=== PATIENT | male | born 1930 | race African-American/Black ===

== ENCOUNTER 2016-09-27 16:57 | Inpatient (IN) | payer MEDICARE ==
[~2016-09-27] VITALS: Ht 172.7 cm; Wt 74.8 kg
[~2016-09-27 16:57] MED LIST: AMLO10TA4 PO; DIGO250T4 PO; WARF4TAB36 PO
[2016-09-27 17:58] LABS: CHLORIDE 103 mEq/L (98-107)
[2016-09-27 18:00] LABS: INDEX HEMOLYSI 1 (1-3); INDEX ICTERIC 1 (1-4); INDEX LIPEMIC 1 (1-3)
[2016-09-27 18:01] LABS: BASOPHILS % 0.9 % (0.0-2.0); EOSINOPHILS % 1.6 % (0.0-5.0); HEMATOCRIT. 43.2 % (42.0-52.0); HEMOGLOBIN. 14.6 g/dL (14.0-18.0); LYMPHOCYTES % 17.9 % (20.0-50.0); MEAN CORPUSCULAR HEMOGLOBIN 31.5 pg (28.0-32.0); MEAN CORPUSCULAR HGB CONC 33.9 g/dL (31.0-37.0); MEAN PLATELET VOLUME 9.5 fl (7.4-10.4); MONOCYTES % 6.2 % (2.0-8.0); NEUTROPHILS % 73.4 % (40.0-76.0); PLATELET 255 x1000/uL (130-400); RED BLOOD CELL COUNT 4.65 mill/uL (4.7-6.1); RED CELL DISTRIBUTION WIDTH 13.6 % (11.6-14.6)
[2016-09-27 18:02] LABS: ALBUMIN 3.8 g/dL (3.4-5.0); CALCIUM 8.7 mg/dL (8.5-10.1)
[2016-09-27 18:06] LABS: ALANINE AMINOTRANSFERASE 23 IU/L (13-61); ANION GAP 14; CARBON DIOXIDE 28 mEq/L (21-32); MAGNESIUM 1.9 mg/dL (1.8-2.4); PHOSPHORUS 3.2 mg/dL (2.5-4.9); UREA NITROGEN BLOOD 23 mg/dL (7-21); eGFR > 60 mL/min (>60)
[2016-09-27 18:07] LABS: INR 1.1; PARTIAL THROMBOPLASTIN TIME 25.5 sec (24.0-34.0); PROTHROMBIN TIME 11.4 sec
[2016-09-27 18:10] LABS: NT PRO B-TYPE NATRIURETIC PEP 2343 pg/mL (5-125); TROPONIN I 0.35 ng/mL (0.00-0.04)
[2016-09-27] MEDS ORDERED: ASPIRIN 325MG EC TABLET PO ONE (19:15)
[2016-09-27 22:29] VITALS: BP 127/83
[2016-09-27 22:42] VITALS: BP 127/83
[2016-09-27] MEDS ORDERED: MEMA10TA11 PO (22:49)
[2016-09-27] MEDS ORDERED: CLONIDINE 0.1MG TABLET PO PRN (23:00)
[2016-09-27] MEDS ORDERED: MORPHINE SULFATE 4 MG/ML CPJ (NOT FOR IM USE) IV PRN (23:00)
[2016-09-27] MEDS ORDERED: ONDANSETRON HCL 4MG/2ML VIAL IV PRN (23:00)
[2016-09-28] VITALS: BP 123/85
[2016-09-28 04:00] VITALS: BP 128/79
[2016-09-28 06:19] LABS: BASOPHILS % 0.7 % (0.0-2.0); EOSINOPHILS % 1.2 % (0.0-5.0); HEMATOCRIT. 39.5 % (42.0-52.0); HEMOGLOBIN. 13.3 g/dL (14.0-18.0); LYMPHOCYTES % 25.7 % (20.0-50.0); MEAN CORPUSCULAR HEMOGLOBIN 31.5 pg (28.0-32.0); MEAN CORPUSCULAR HGB CONC 33.7 g/dL (31.0-37.0); MEAN CORPUSCULAR VOLUME 93.4 fL (80.0-94.0); MEAN PLATELET VOLUME 9.7 fl (7.4-10.4); NEUTROPHILS % 66.4 % (40.0-76.0); PLATELET 233 x1000/uL (130-400); RED BLOOD CELL COUNT 4.23 mill/uL (4.7-6.1); RED CELL DISTRIBUTION WIDTH 13.7 % (11.6-14.6); WHITE BLOOD COUNT 8.8 x1000/uL (4.5-11.0)
[2016-09-28 08:00] VITALS: BP 140/87
[2016-09-28 08:28] LABS: ANION GAP 14; CALCIUM 8.5 mg/dL (8.5-10.1); CARBON DIOXIDE 26 mEq/L (21-32); CHLORIDE 105 mEq/L (98-107); INDEX HEMOLYSI 1 (1-3); INDEX ICTERIC 1 (1-4); INDEX LIPEMIC 1 (1-3); LDL CHOLESTEROL 109 mg/dL (5-100); TRIGLYCERIDE 84 mg/dL (0-150); UREA NITROGEN BLOOD 20 mg/dL (7-21); eGFR > 60 mL/min (>60)
[2016-09-28 08:31] LABS: CREATINE KINASE 114 IU/L (39-308); CREATINE KINASE MB FRACTION 1.6 ng/mL (0.5-3.6); HDL CHOLESTEROL 73 mg/dL (40-59)
[2016-09-28] MEDS: ASPIRIN 81MG TABLET PO SCH ×2 (08:32→17:22)
[2016-09-28] MEDS: ENOXAPARIN 40MG/0.4ML SYR SUBCUT SCH (08:32)
[2016-09-28 12:00] VITALS: BP 114/77
[2016-09-28 16:00] VITALS: BP 112/69
[2016-09-28] MEDS: DIGOXIN 125MCG TABLET PO SCH (17:19)
[2016-09-28] MEDS ORDERED: WARFARIN SODIUM 7.5MG TABLET PO SCH (18:00)
[2016-09-28 20:00] VITALS: BP 132/87
[2016-09-28 20:30] LABS: T4 FREE 1.13 ng/dL (0.76-1.46); THYROID STIMULATING HORMONE 1.6 uIU/mL (0.36-3.74)
[2016-09-28] MEDS: ATORVASTATIN CALCIUM 10MG TABLET PO SCH (21:07)
[2016-09-29] VITALS: BP 137/97
[2016-09-29 00:05] LABS: CREATINE KINASE MB FRACTION 1.9 ng/mL (0.5-3.6); TROPONIN I 0.3 ng/mL (0.00-0.04)
[2016-09-29 04:00] VITALS: BP 147/72
[2016-09-29 06:23] LABS: INR 1.1
[2016-09-29 07:41] LABS: CREATINE KINASE MB FRACTION 1.1 ng/mL (0.5-3.6); TROPONIN I 0.28 ng/mL (0.00-0.04)
[2016-09-29 08:15] VITALS: BP 146/83
[2016-09-29] MEDS: ENOXAPARIN 40MG/0.4ML SYR SUBCUT SCH (08:50)
[2016-09-29] MEDS: ASPIRIN 81MG TABLET PO SCH ×2 (08:50→08:51)
[2016-09-29 11:21] LABS: AMMONIA 15 uMol/L (<32)
[2016-09-29 11:38] LABS: CLARITY URINE CLEAR (CLEAR); COLOR URINE YELLOW (YELLOW); GLUCOSE URINE NEGATIVE (NEGATIVE); KETONES URINE NEGATIVE (NEGATIVE); LEUKOCYTE ESTERASE URINE NEGATIVE (NEGATIVE); NITRITE URINE NEGATIVE (NEGATIVE); OCCULT BLOOD URINE NEGATIVE (NEGATIVE); PROTEIN URINE NEGATIVE (NEGATIVE); SPECIFIC GRAVITY URINE 1.019 (1.005-1.030); UROBILINOGEN URINE 0.2 E.U./dL (0.2-1.0)
[2016-09-29] MEDS ORDERED: ONDANSETRON HCL 4MG/2ML VIAL IV PRN (11:39)
[2016-09-29] MEDS ORDERED: MORPHINE SULFATE 4 MG/ML CPJ (NOT FOR IM USE) IV PRN (11:39)
[2016-09-29 11:43] LABS: FOLIC ACID (FOLATE) SERUM 16.7 ng/mL (>5.38)
[2016-09-29 12:00] VITALS: BP 100/71
[2016-09-29 15:57] LABS: CREATINE KINASE MB FRACTION 1.2 ng/mL (0.5-3.6); TROPONIN I 0.29 ng/mL (0.00-0.04)
[2016-09-29 16:00] VITALS: BP 124/66
[2016-09-29] MEDS: DIGOXIN 125MCG TABLET PO SCH (17:25)
[2016-09-29] MEDS ORDERED: WARFARIN SODIUM 3MG TABLET PO SCH (18:00)
[2016-09-29 20:00] VITALS: BP 114/81
[2016-09-29] MEDS: ATORVASTATIN CALCIUM 10MG TABLET PO SCH (21:25)
[2016-09-30] VITALS: BP 119/80
[2016-09-30 04:00] VITALS: BP 123/72
[2016-09-30 05:55] LABS: INR 1.2; PROTHROMBIN TIME 12.8 sec
[2016-09-30 06:04] LABS: BASOPHILS % 0.9 % (0.0-2.0); EOSINOPHILS % 2.3 % (0.0-5.0); HEMATOCRIT. 39.1 % (42.0-52.0); HEMOGLOBIN. 13.1 g/dL (14.0-18.0); LYMPHOCYTES % 33.6 % (20.0-50.0); MEAN CORPUSCULAR HEMOGLOBIN 30.9 pg (28.0-32.0); MEAN CORPUSCULAR HGB CONC 33.6 g/dL (31.0-37.0); MEAN CORPUSCULAR VOLUME 91.9 fL (80.0-94.0); MEAN PLATELET VOLUME 9.2 fl (7.4-10.4); NEUTROPHILS % 55.2 % (40.0-76.0); PLATELET 236 x1000/uL (130-400); RED BLOOD CELL COUNT 4.25 mill/uL (4.7-6.1); RED CELL DISTRIBUTION WIDTH 13.6 % (11.6-14.6); WHITE BLOOD COUNT 7.6 x1000/uL (4.5-11.0)
[2016-09-30 06:19] LABS: ALANINE AMINOTRANSFERASE 17 IU/L (13-61); ANION GAP 12; CALCIUM 8.1 mg/dL (8.5-10.1); CARBON DIOXIDE 28 mEq/L (21-32); CHLORIDE 106 mEq/L (98-107); INDEX HEMOLYSI 1 (1-3); INDEX ICTERIC 1 (1-4); INDEX LIPEMIC 1 (1-3); UREA NITROGEN BLOOD 23 mg/dL (7-21); eGFR > 60 mL/min (>60)
[2016-09-30 07:49] VITALS: BP 144/81
[2016-09-30] MEDS: ENOXAPARIN 40MG/0.4ML SYR SUBCUT SCH (08:29)
[2016-09-30] MEDS: ASPIRIN 81MG TABLET PO SCH (08:30)
[2016-09-30 12:22] VITALS: BP 120/76
[2016-09-30 16:00] VITALS: BP 124/79
[2016-09-30] MEDS: DIGOXIN 125MCG TABLET PO SCH (17:45)
[2016-09-30] MEDS ORDERED: WARFARIN SODIUM 3MG TABLET PO SCH (18:00)
[2016-09-30 20:00] VITALS: BP 110/79
[2016-09-30] MEDS: ATORVASTATIN CALCIUM 10MG TABLET PO SCH (21:04)
[2016-10-01] VITALS: BP 140/91
[2016-10-01 04:00] VITALS: BP 134/81
[2016-10-01 07:20] LABS: INR 1.4; PROTHROMBIN TIME 15.1 sec
[2016-10-01 07:59] VITALS: BP 152/100
[2016-10-01] MEDS: ENOXAPARIN 40MG/0.4ML SYR SUBCUT SCH (08:41)
[2016-10-01] MEDS: ASPIRIN 81MG TABLET PO SCH (08:41)
[2016-10-01 12:00] VITALS: BP 145/90
[2016-10-01 16:29] VITALS: BP 117/78
[2016-10-01] MEDS ORDERED: WARFARIN SODIUM 3MG TABLET PO NR (18:00)
[2016-10-01] MEDS: DIGOXIN 125MCG TABLET PO SCH (18:19)
[2016-10-01 20:10] VITALS: BP 120/86
[2016-10-01] MEDS: ATORVASTATIN CALCIUM 10MG TABLET PO SCH (20:29)
[2016-10-01] MEDS: LORAZEPAM 2MG/ML CPJ IV PRN (20:41)
[2016-10-02] VITALS: BP 134/93
[2016-10-02 04:00] VITALS: BP 94/47
[2016-10-02 05:50] LABS: INR 1.6; PROTHROMBIN TIME 16.9 sec
[2016-10-02 08:00] VITALS: BP 144/92
[2016-10-02] MEDS: ENOXAPARIN 40MG/0.4ML SYR SUBCUT SCH (08:56)
[2016-10-02] MEDS: ASPIRIN 81MG TABLET PO SCH (08:56)
[2016-10-02 12:00] VITALS: BP 115/98
[2016-10-02 15:52] VITALS: BP 153/81
[2016-10-02] MEDS: DIGOXIN 125MCG TABLET PO SCH (17:53)
[2016-10-02] MEDS ORDERED: WARFARIN SODIUM 3MG TABLET PO NR (18:00)
[2016-10-02] MEDS: ATORVASTATIN CALCIUM 10MG TABLET PO SCH (20:32)
[2016-10-02] MEDS: LORAZEPAM 2MG/ML CPJ IV PRN (22:15)
[2016-10-03] VITALS: BP 123/84
[2016-10-03 04:00] VITALS: BP 137/83
[2016-10-03 07:08] LABS: INR 1.8; PROTHROMBIN TIME 18.9 sec
[2016-10-03 07:36] LABS: CHLORIDE 105 mEq/L (98-107); INDEX HEMOLYSI 1 (1-3); INDEX ICTERIC 1 (1-4); INDEX LIPEMIC 1 (1-3)
[2016-10-03 07:54] LABS: ANION GAP 15; CALCIUM 8.7 mg/dL (8.5-10.1); CARBON DIOXIDE 23 mEq/L (21-32); MAGNESIUM 1.9 mg/dL (1.8-2.4); UREA NITROGEN BLOOD 19 mg/dL (7-21); eGFR > 60 mL/min (>60)
[2016-10-03 08:00] VITALS: BP 140/79
[2016-10-03] MEDS: ENOXAPARIN 40MG/0.4ML SYR SUBCUT SCH (08:55)
[2016-10-03] MEDS: ASPIRIN 81MG TABLET PO SCH (08:55)
[2016-10-03 12:00] VITALS: BP 120/73
[2016-10-03 16:00] VITALS: BP 135/88
[2016-10-03] MEDS ORDERED: WARFARIN SODIUM 3MG TABLET PO NR (18:00)
[2016-10-03] MEDS: DIGOXIN 125MCG TABLET PO SCH (18:07)
[2016-10-03 20:00] VITALS: BP 144/101
[2016-10-03] MEDS: ATORVASTATIN CALCIUM 10MG TABLET PO SCH (20:39)
[2016-10-03] MEDS: LORAZEPAM 2MG/ML CPJ IV PRN (22:41)
[2016-10-04] VITALS: BP 134/84
[2016-10-04 06:19] LABS: INR 2.8; PROTHROMBIN TIME 28.8 sec
[2016-10-04 08:31] VITALS: BP 144/99
[2016-10-04] MEDS: ENOXAPARIN 40MG/0.4ML SYR SUBCUT SCH (09:11)
[2016-10-04 12:00] VITALS: BP 121/82
[2016-10-04 16:08] VITALS: BP 133/76
[2016-10-04] MEDS: DIGOXIN 125MCG TABLET PO SCH (17:54)
== END 2016-10-04 18:30 | disposition home health service (06) | DRG 291 ==
LOC: ER 17:06 → 7WST 19:37
PROVIDERS: ADMIT Hospitalist; ATTEND Hospitalist
DX: I11.0 Hypertensive heart disease with heart failure (principal); G93.41 Metabolic encephalopathy; D68.59 Other primary thrombophilia; I67.82 Cerebral ischemia; G90.8 Other disorders of autonomic nervous system; I48.91 Unspecified atrial fibrillation; E78.5 Hyperlipidemia, unspecified; F03.90 Unspecified dementia, unspecified severity, without behavioral disturbance, psychotic disturbance, mood disturbance, and anxiety; I50.9 Heart failure, unspecified; Z95.0 Presence of cardiac pacemaker
CPT/HCPCS: 36415; 70450; 71010; 80048; 80053; 80061; 81003; 82140; 82550; 82553; 82607; 82746; 82962; 83036; 83735; 83880; 84100; 84439; 84443; 84484; 85025; 85379; 85610; 85730; 93005; 93306; 97116; 97162; 97530; 99285; J1650; J2060